=== PATIENT | male | born 1985 | race Caucasian/White ===

== ENCOUNTER 2018-11-21 11:34 | Emergency (ER) | payer OTHER ==
[~2018-11-21] VITALS: Ht 182.9 cm; Wt 72.6 kg
[2018-11-21] MEDS ORDERED: DEXTROSE 50% 50 ML DISP.SYRIN IV ONE (11:45)
[2018-11-21] MEDS ORDERED: IV NORMAL SALINE 1000 ML BAG IV ONE (11:45)
[2018-11-21] MEDS ORDERED: DEXTROSE 50% 50 ML DISP.SYRIN ONE (11:46)
--- NOTE | 2018-11-21 11:50 | NUR ---
MEAL TRAY WAS PROVIDED PATIENT A & O X3.
--- NOTE | 2018-11-21 11:55 | NUR ---
Pt is awake, alert and oriented x 3 at this time. Pt's medical record updated accordingly with new information provided by pt.
--- NOTE | 2018-11-21 11:56 | NUR ---
Dhara [employer] Trimmer was called left message.
[2018-11-21] MEDS ORDERED: [UNRECOGNIZED DRUG - REMARK] (11:58)
[2018-11-21 12:05] LABS: POTASSIUM 3.6 mmol/L (3.5-5.1)
--- NOTE | 2018-11-21 12:40 | NUR ---
Patient discharged to home in stable conditon. Written and verbal after care instructions given. Patient verbalizes understanding of instructions. Patient did not want to wait for social media strategist said had to take car of his car and needs to leave now. Dr Casiano aware refused blood sugar recheck patient A & O X3.
[2018-11-21 12:46] VITALS: BP 135/77
== END 2018-11-21 12:53 | disposition home or self-care (01) ==
LOC: EDBD → MERGE 11:34 → ER 11:34
DX: E16.0 Drug-induced hypoglycemia without coma (principal)
CPT/HCPCS: 36415; 80048; 82962 ×2; 93005; 96374; 99284; J3490; A4663